=== PATIENT | female | born 1975 | race Caucasian/White ===

== ENCOUNTER 2025-01-02 23:08 | Emergency (ER) | payer OTHER, SELFPAY ==
[2025-01-02 23:33] VITALS: BP 142/90; PULSE 77; TEMP 36.7; O2SAT 97; BMI 21.1
[2025-01-03 00:23] VITALS: BP 146/100; PULSE 79; TEMP 36.6; O2SAT 98; BMI 20.8
--- NOTE | 2025-01-03 00:25 | ED.URI1 ---
HPI - URI/Sore Throat General Chief Complaint: Upper Respiratory Infection Stated Complaint: Upper Respiratory Infection Time Seen by Provider: 01/03/25 00:21 Source: patient Limitations: no limitations History of Present Illness HPI Narrative: presents complaining of sinus infection. States she has had them before and usually what works is a steroid and antibiotic combination. Pressure in her sinuses is usually worse in the AM. No fever or chills or dyspnea Related Data Allergies Allergy/AdvReac Type Severity Reaction Status Date / Time Penicillins Allergy Severe Difficulty Verified 01/03/25 00:29 Breathing Review of Systems ROS Status of ROS 10 or more systems reviewed and unremarkable except as noted in history and below PFSH PFSH Social History Little interest or pleasure in doing things: not at all Feeling down, depressed, or hopeless: not at all Exam Constitutional Vital Signs, click to edit/add: Last Vital Signs Temp 98.1 F 01/02/25 23:33 Pulse 77 01/02/25 23:33 Resp 18 01/02/25 23:33 BP 142/90 H 01/02/25 23:33 Pulse Ox 97 01/02/25 23:33 O2 Del Method Room Air 01/02/25 23:33 Common normals: no apparent distress, average body habitus, oriented x3, no limitations, healthy appearing, alert and well nourished [facility] Common normals: normocephalic and head/scalp atraumatic Respiratory Common normals: normal respiratory effort, no retractions, no use of accessory muscles and clear to auscultation bilaterally Cardio Common normals: regular rate, regular rhythm, S1 normal heart sound and S2 normal heart sound Extremity Common normals: normal to inspection and full ROM Neuro Common normals: oriented x3, CN's II-XII intact bilaterally and moves all extremities Psych Appearance: grossly normal Course Vital Signs Vital signs: Vital Signs Temperature 98.1 F 01/02/25 23:33 Pulse Rate 77 01/02/25 23:33 Respiratory Rate 18 01/02/25 23:33 Blood Pressure 142/90 H 01/02/25 23:33 Pulse Oximetry 97 01/02/25 23:33 Oxygen Delivery Method Room Air 01/02/25 23:33 Temperature 98.1 F 01/02/25 23:33 Pulse Rate 77 01/02/25 23:33 Respiratory Rate 18 01/02/25 23:33 Blood Pressure 142/90 H 01/02/25 23:33 Pulse Oximetry 97 01/02/25 23:33 Oxygen Delivery Method Room Air 01/02/25 23:33 MDM - URI/Sore Throat MDM Narrative Medical decision making narrative: presents with sinus pressure similar to past sinusitis. Patient did not want to get in a gown just wanted to be treated. Exam neg except for mild sinus tenderness. prescription written for zpak and medrol Discharge Plan Discharge Chief Complaint: Upper Respiratory Infection Clinical Impression: Sinusitis Patient Disposition: Home, Self-Care Print Language: Czech Instructions: Sinusitis (ED) Additional Instructions: follow up with your doctor for recheck Referrals: Physician,Non-Staff, MD [Primary Care Provider] - 1 week
[2025-01-03 00:38] VITALS: BP 130/90
== END 2025-01-03 00:39 | disposition home or self-care (01) ==
PROVIDERS: Emergency Provider Internal Medicine
DX: J32.9 Chronic sinusitis, unspecified (principal)
CPT/HCPCS: 99283